=== PATIENT | male | born 1985 | race Caucasian/White ===

== ENCOUNTER 2017-11-21 13:08 | Day surgery (SDC) | payer OTHER ==
[~2017-11-21] VITALS: Ht 198.1 cm; Wt 115.0 kg
[~2017-11-21 13:08] MED LIST: HYDCHL25 PO; HYDR-86 PO; Norco 5-325 Ta1 EACH PO; Veetids 500500 MG PO; ZESTORETIC 20-121 EA
[2017-11-21] MEDS ORDERED: OXYC1TAB11 (15:01)
[2017-11-21] MEDS ORDERED: ALLO100 PO (15:02)
== END 2017-11-21 16:55 | disposition home or self-care (01) ==
LOC: ORSCSDS 13:08
PROVIDERS: Podiatrist Foot & Ankle Surgery
PROC: 0Y6S0Z3 Detachment at Left 2nd Toe, Low, Open Approach (ICD-10-PCS; principal; 2017-11-21 15:00)
DX: L97.529 Non-pressure chronic ulcer of other part of left foot with unspecified severity (principal); M86.9 Osteomyelitis, unspecified; I10 Essential (primary) hypertension; J45.909 Unspecified asthma, uncomplicated; Z79.899 Other long term (current) drug therapy
CPT/HCPCS: J0690; J2250; J3010; J7120

== ENCOUNTER 2018-07-31 10:30 | Emergency (ER) | payer OTHER ==
[~2018-07-31] VITALS: Ht 198.1 cm; Wt 117.9 kg
[~2018-07-31 10:30] MED LIST changes: +ALLO100 PO; +OXYC1TAB11
[2018-07-31] MEDS ORDERED: Cyclobenzaprine5 MG PO (12:24)
[2018-07-31] MEDS ORDERED: KETO10 PO (12:24)
== END 2018-07-31 12:36 | disposition home or self-care (01) ==
LOC: ER 10:30
DX: M54.41 Lumbago with sciatica, right side (principal); Z88.0 Allergy status to penicillin; Z88.1 Allergy status to other antibiotic agents; Z88.8 Allergy status to other drugs, medicaments and biological substances; Z79.899 Other long term (current) drug therapy; Z79.891 Long term (current) use of opiate analgesic; I10 Essential (primary) hypertension
CPT/HCPCS: 96372; 99283-25; J1885

== ENCOUNTER 2019-11-05 14:24 | Day surgery (SDC) | payer OTHER ==
[~2019-11-05] VITALS: Ht 198.1 cm; Wt 113.4 kg
[~2019-11-05 14:24] MED LIST changes: +Cyclobenzaprine5 MG PO; +DICL25ER PO; +KETO10 PO; +LISINOPRIL-HCT1 EACH PO; +PREG75 PO
--- NOTE | 2019-11-05 15:49 | NUR ---
11/05/19 1549 Felicia Chisholm RIGHT FOOT ULCER DRESSED WELL PER
== END 2019-11-05 16:52 | disposition home or self-care (01) ==
LOC: ORSCSDS 14:24
PROVIDERS: Podiatrist Foot & Ankle Surgery
PROC: 0Y6U0Z3 Detachment at Left 3rd Toe, Low, Open Approach (ICD-10-PCS; principal; 2019-11-05 15:45)
DX: M86.172 Other acute osteomyelitis, left ankle and foot (principal); L97.529 Non-pressure chronic ulcer of other part of left foot with unspecified severity; G60.9 Hereditary and idiopathic neuropathy, unspecified; G62.9 Polyneuropathy, unspecified; Z79.899 Other long term (current) drug therapy
CPT/HCPCS: J0171; J0690; J2250; J2704; J3010; J7120

== ENCOUNTER 2019-11-13 13:14 | Emergency (ER) | payer OTHER ==
[~2019-11-13] VITALS: Ht 198.1 cm; Wt 113.4 kg
[2019-11-13] MEDS ORDERED: LISI20 PO (13:37)
[2019-11-13 15:03] LABS: BASOPHILS ABSOLUTE AUTO 0.06 K/mm3 (0.00-0.23); BASOPHILS PERCENT AUTO 1 % (0-2); EOSINOPHILS PERCENT AUTO 1 % (0-6); Hematocrit 47.1 % (37.0-53.0); Hemoglobin 15.7 g/dL (13.5-17.5); IMMATURE GRAN ABSOLUTE AUTO 0.03 K/mm3 (0.00-0.10); IMMATURE GRAN PERCENT AUTO 0 % (0-1); LYMPHOCYTES ABSOLUTE AUTO 1.52 K/mm3 (0.84-5.20); LYMPHOCYTES PERCENT AUTO 13 % (21-46); MONOCYTES ABSOLUTE AUTO 1.03 K/mm3 (0.16-1.47); MONOCYTES PERCENT AUTO 9 % (4-13); Mean Corpuscular HGB 27.8 pg (26.0-34.0); Mean Corpuscular HGB Conc 33.3 g/dL (31.5-36.5); Mean Corpuscular Volume 84 fL (80-100); Mean Platelet Volume 8.8 fL (9.1-12.4); NEUTROPHILS ABSOLUTE AUTO 8.84 K/mm3 (1.96-9.15); NEUTROPHILS PERCENT AUTO 76 % (41-73); Platelet Count 379 K/mm3 (150-400); RDW Coefficient Variation 11.9 % (11.7-14.2); RDW Standard Deviation 36.1 fL (35.1-46.3); Red Blood Cell Count 5.64 M/mm3 (4.30-5.90); White Blood Cell Count 11.58 K/mm3 (4.00-11.30)
[2019-11-13 15:42] LABS: Anion Gap 5 mmol/L (6-16); Blood Urea Nitrogen 19 mg/dL (8-24); Bun/Creatinine Ratio 19.3 (12.0-20.0); CO2, Blood 27 mmol/L (21-32); Calcium, Blood 9.3 mg/dL (8.5-10.1); Chloride, Blood 105 mmol/L (98-108); Creatinine, Blood 0.98 mg/dL (0.60-1.20); Glomerular Filtration Rate >60 (60-); Glucose, Blood 92 mg/dL (70-99); Potassium, Blood 4.4 mmol/L (3.5-5.5); Sodium, Blood 137 mmol/L (136-145)
[2019-11-13] MEDS ORDERED: HYDR1TAB94 PO (16:19)
[2019-11-14] MEDS ORDERED: Cleocin HCl300 MG PO (00:47)
== END 2019-11-13 16:40 | disposition home or self-care (01) ==
LOC: ER 13:14
PROVIDERS: Emergency Medicine
DX: I89.1 Lymphangitis (principal); I10 Essential (primary) hypertension; Z88.0 Allergy status to penicillin; Z88.1 Allergy status to other antibiotic agents; Z79.899 Other long term (current) drug therapy
CPT/HCPCS: 36415; 76882; 80048; 83605; 85025; 96365; 99284-25

== ENCOUNTER → 2021-03-30 | Outpatient (CLI) | payer OTHER ==
[~2021-03-30] MED LIST changes: +CIPR500 PO; +Cleocin HCl300 MG PO; +DOXY100 PO; +Doxycycline Mo100 M1; +HYDR1TAB94 PO; +LISI20 PO; +OLME5TAB
[2021-03-30 11:08] LABS: BODY FLUID RBC 0.009 M/mm3 (0-0); RBC Count, Synovial Fluid 9000 /mm3 (0-0)
[2021-03-30 11:19] LABS: Appearance, Synovial Fluid Cloudy (Clear); Color, Synovial Fluid Pale Yellow (None-P Yel)
[2021-03-30 11:20] LABS: WBC Count, Synovial Fluid 41120 /mm3 (0-180)
[2021-03-30 11:33] LABS: Lymphs, Synovial Fluid 1 % (0-15); Monocytes/Macrophages, Synovia 6 % (0-65); Neutrophils, Synovial Fluid 93 % (0-24)
== END ==
LOC: LAB 09:20 → LAB SHORT 09:20
PROVIDERS: Physician Assistant Surgical
DX: M25.422 Effusion, left elbow (principal); M00.9 Pyogenic arthritis, unspecified
CPT/HCPCS: 89051

== ENCOUNTER 2021-05-18 11:15 | Day surgery (SDC) | payer OTHER ==
[~2021-05-18] VITALS: Ht 198.1 cm; Wt 104.1 kg
== END 2021-05-18 14:05 | disposition home or self-care (01) ==
LOC: ORSCSDS 11:15
PROVIDERS: Podiatrist Foot & Ankle Surgery
PROC: 0L8P0ZZ Division of Left Lower Leg Tendon, Open Approach (ICD-10-PCS; principal; 2021-05-18 12:30)
DX: L97.529 Non-pressure chronic ulcer of other part of left foot with unspecified severity (principal); G60.9 Hereditary and idiopathic neuropathy, unspecified; I10 Essential (primary) hypertension; Z79.899 Other long term (current) drug therapy; Z86.16 Personal history of COVID-19
CPT/HCPCS: J0171; J1100; J1885; J2250; J2405; J2704; J3010; J7120

== ENCOUNTER 2021-08-24 12:00 | Emergency (ER) | payer OTHER ==
[~2021-08-24] VITALS: Ht 198.1 cm; Wt 104.3 kg
[2021-08-24 13:08] LABS: BASOPHILS ABSOLUTE AUTO 0.04 K/mm3 (0.00-0.23); BASOPHILS PERCENT AUTO 0 % (0-2); EOSINOPHILS PERCENT AUTO 0 % (0-6); Hematocrit 47.5 % (37.0-53.0); Hemoglobin 16.6 g/dL (13.5-17.5); IMMATURE GRAN ABSOLUTE AUTO 0.04 K/mm3 (0.00-0.10); IMMATURE GRAN PERCENT AUTO 0 % (0-1); LYMPHOCYTES ABSOLUTE AUTO 1.26 K/mm3 (0.84-5.20); LYMPHOCYTES PERCENT AUTO 9 % (21-46); MONOCYTES PERCENT AUTO 3 % (4-13); Mean Corpuscular HGB 28.7 pg (26.0-34.0); Mean Corpuscular HGB Conc 34.9 g/dL (31.5-36.5); Mean Corpuscular Volume 82 fL (80-100); Mean Platelet Volume 9.5 fL (9.1-12.4); NEUTROPHILS PERCENT AUTO 87 % (41-73); Platelet Count 450 K/mm3 (150-400); RDW Coefficient Variation 12.5 % (11.7-14.2); RDW Standard Deviation 37.3 fL (35.1-46.3); Red Blood Cell Count 5.79 M/mm3 (4.30-5.90); White Blood Cell Count 13.74 K/mm3 (4.00-11.30)
[2021-08-24 13:27] LABS: Albumin, Blood 4.6 g/dL (3.4-5.0); Albumin/Globulin Ratio 1.2 (0.8-1.8); Bilirubin, Total 1.1 mg/dL (0.1-1.0); Bun/Creatinine Ratio 13.9 (12.0-20.0); Calcium, Blood 10.3 mg/dL (8.5-10.1); Creatinine, Blood 0.93 mg/dL (0.60-1.20); Globulin, Blood 3.9 g/dL (2.2-4.0); Potassium, Blood 3.9 mmol/L (3.5-5.5); Total Protein, Blood 8.5 g/dL (6.4-8.2)
[2021-08-24] MEDS ORDERED: HYDR1TAB94 PO (15:29)
[2021-08-24] MEDS ORDERED: Reglan10 MG PO (15:29)
[2021-08-24] MEDS ORDERED: LEVFLO500 PO (15:29)
== END 2021-08-24 15:40 | disposition home or self-care (01) ==
LOC: ER 12:00
PROVIDERS: Physician Assistant
DX: K52.9 Noninfective gastroenteritis and colitis, unspecified (principal); I10 Essential (primary) hypertension; F17.220 Nicotine dependence, chewing tobacco, uncomplicated; Z79.899 Other long term (current) drug therapy; Z88.1 Allergy status to other antibiotic agents; Z88.0 Allergy status to penicillin; Z88.8 Allergy status to other drugs, medicaments and biological substances
CPT/HCPCS: 36415; 74177; 80053; 83690; 85025; A9270; J1170; J1885; J2405; J2550; J2765; J7030; Q9967

== ENCOUNTER 2021-08-26 04:35 | Inpatient (IN) | payer OTHER ==
[~2021-08-26] VITALS: Ht 198.1 cm; Wt 105.9 kg
[~2021-08-26 04:35] MED LIST changes: +LEVFLO500 PO; +Reglan10 MG PO
[2021-08-26] MEDS ORDERED: OLMESARTAN MEDO20 MG PO (05:03)
[2021-08-26 05:12] LABS: BASOPHILS ABSOLUTE AUTO 0.04 K/mm3 (0.00-0.23); BASOPHILS PERCENT AUTO 1 % (0-2); EOSINOPHILS ABSOLUTE AUTO 0.03 K/mm3 (0.00-0.68); EOSINOPHILS PERCENT AUTO 0 % (0-6); Hematocrit 44.9 % (37.0-53.0); Hemoglobin 15.6 g/dL (13.5-17.5); IMMATURE GRAN ABSOLUTE AUTO 0.03 K/mm3 (0.00-0.10); IMMATURE GRAN PERCENT AUTO 0 % (0-1); LYMPHOCYTES ABSOLUTE AUTO 1.98 K/mm3 (0.84-5.20); LYMPHOCYTES PERCENT AUTO 23 % (21-46); MONOCYTES ABSOLUTE AUTO 0.66 K/mm3 (0.16-1.47); MONOCYTES PERCENT AUTO 8 % (4-13); Mean Corpuscular HGB 28.5 pg (26.0-34.0); Mean Corpuscular HGB Conc 34.7 g/dL (31.5-36.5); Mean Corpuscular Volume 82 fL (80-100); Mean Platelet Volume 9.2 fL (9.1-12.4); NEUTROPHILS ABSOLUTE AUTO 5.91 K/mm3 (1.96-9.15); NEUTROPHILS PERCENT AUTO 68 % (41-73); Platelet Count 342 K/mm3 (150-400); RDW Coefficient Variation 12.9 % (11.7-14.2); RDW Standard Deviation 38.6 fL (35.1-46.3); Red Blood Cell Count 5.47 M/mm3 (4.30-5.90); White Blood Cell Count 8.65 K/mm3 (4.00-11.30)
[2021-08-26 05:31] LABS: Albumin, Blood 4.1 g/dL (3.4-5.0); Albumin/Globulin Ratio 1.2 (0.8-1.8); Bilirubin, Direct 0.1 mg/dL (0.0-0.3); Bilirubin, Total 0.8 mg/dL (0.1-1.0); Bun/Creatinine Ratio 12.3 (12.0-20.0); Calcium, Blood 9.4 mg/dL (8.5-10.1); Creatinine, Blood 0.98 mg/dL (0.60-1.20); Globulin, Blood 3.5 g/dL (2.2-4.0); Potassium, Blood 4.1 mmol/L (3.5-5.5); Total Protein, Blood 7.6 g/dL (6.4-8.2)
--- NOTE | 2021-08-26 16:32 | NUR ---
SHIFT SUMMARY- TRANSFERRED FROM ED, ASSUMED CARE. PT PAIN MANAGED PER EMAR. PT RELAXING WITH FAMILY AT BEDSIDE. NO N/V NOTED DURING SHIFT. VSS. PT CONSUMING CLEAR DIET WITH EASE AT THIS POINT. WILL CONTINUE TO MONITOR, RESTING WITH CALL LIGHT IN REACH.
--- NOTE | 2021-08-27 05:16 | NUR ---
SHIFT SUMMARY PT ALERT AND ORIENTED X4. FAMILY IN ROOM. HR 50-70'S. BP STABLE. ON RA SATS OVER 95%. LR INFUSING AT 200ML/HR. PAIN MANAGED WITH DILUADID CHUCKING MACHINE SET UP OPERATOR PUMP. INDEPENDENT IN ROOM. CL DIET. SOME NAUSEA, MEDICATED PER EMAR. PT IN BED RESTING WITH SPOUSE AT SIDE. WILL CONTINUE TO MONITOR UNTIL REPORT GIVEN TO DAYSHIFT ANDREW
[2021-08-27 05:40] LABS: BASOPHILS ABSOLUTE AUTO 0.06 K/mm3 (0.00-0.23); BASOPHILS PERCENT AUTO 1 % (0-2); EOSINOPHILS ABSOLUTE AUTO 0.12 K/mm3 (0.00-0.68); EOSINOPHILS PERCENT AUTO 2 % (0-6); Hematocrit 42.8 % (37.0-53.0); Hemoglobin 14.3 g/dL (13.5-17.5); IMMATURE GRAN ABSOLUTE AUTO 0.03 K/mm3 (0.00-0.10); IMMATURE GRAN PERCENT AUTO 0 % (0-1); LYMPHOCYTES ABSOLUTE AUTO 2.87 K/mm3 (0.84-5.20); LYMPHOCYTES PERCENT AUTO 38 % (21-46); MONOCYTES ABSOLUTE AUTO 0.66 K/mm3 (0.16-1.47); MONOCYTES PERCENT AUTO 9 % (4-13); Mean Corpuscular HGB 28.5 pg (26.0-34.0); Mean Corpuscular HGB Conc 33.4 g/dL (31.5-36.5); Mean Corpuscular Volume 85 fL (80-100); Mean Platelet Volume 9.2 fL (9.1-12.4); NEUTROPHILS ABSOLUTE AUTO 3.74 K/mm3 (1.96-9.15); NEUTROPHILS PERCENT AUTO 50 % (41-73); Platelet Count 261 K/mm3 (150-400); RDW Coefficient Variation 12.9 % (11.7-14.2); RDW Standard Deviation 39.8 fL (35.1-46.3); Red Blood Cell Count 5.01 M/mm3 (4.30-5.90); White Blood Cell Count 7.48 K/mm3 (4.00-11.30)
[2021-08-27 06:00] LABS: Albumin, Blood 3.3 g/dL (3.4-5.0); Albumin/Globulin Ratio 1.2 (0.8-1.8); Bilirubin, Total 0.6 mg/dL (0.1-1.0); Bun/Creatinine Ratio 10.7 (12.0-20.0); Calcium, Blood 8.6 mg/dL (8.5-10.1); Creatinine, Blood 0.93 mg/dL (0.60-1.20); Globulin, Blood 2.7 g/dL (2.2-4.0); Magnesium, Blood 1.9 mg/dL (1.6-2.4); Phosphorus, Blood 3.6 mg/dL (2.5-4.9); Potassium, Blood 3.9 mmol/L (3.5-5.5)
--- NOTE | 2021-08-27 18:29 | NUR ---
PATIENT REPORTS WISHING TO DISCHARGE TOMORROW. DR. ZAMAN WROTE ORDERS FOR PO PAIN MEDICATION SO THAT THE PATIENT WOULD BE ABLE TO TRY THIS RATHER THAN IV. PATIENT UTILIZED ONLY ONE TIME DURING THIS SHIFT, AND USED THE STEAM PRESS OPERATOR BUTTON INSTEAD. HE SAID THAT HE MAY TRY IT TOMORROW. PATIENT HAD AN EPISODE OF NAUSEA AFTER LUNCH (WHICH WAS ALSO AROUND THE TIME OF THE PO PAIN MEDICATION). A DOSE OF ZOFRAN ALLEVIATED THIS. DIET INCREASED TO FUL LIQUID FOR DINNER. HE IS TOLERATING WELL, AND EATING VERY SLOWLY. PAIN HAS BEEN WLL MANAGED DURING THIS SHIFT. THE OPEN SORE ON THE BOTTOM OF THE TOE WAS CLEANED AND BANDAGE WAS REPLACED.
--- NOTE | 2021-08-28 05:48 | NUR ---
SUMMARY: PT A/OX4, IS INDEPENDENT IN ROOM AND CALLS APPROPRIATELY TO SPECIFY NEEDS. HE FEELS PAIN SYMPTOMS ARE IMPROVING AND IS HOPEFUL TO GO HOME TODAY. PT TRIALED PO PAIN MEDS W/DECREASED RELIANCE ON DILAUDID RN LPN LVN TO MANAGE UPPER ABDO PAIN. HE'S DENIED NAUSEA BUT X2 DOSES PRN ZOFRAN WAS RECIEVED PROPHYLACTICALLY W/APPLESAUCE TO BETTER TOLERATE PO OXYCODONE. LR CONT'S INFUSING AND PT MANAGED FULL LIQUID DIET AD ROBYN W/O COMPLAINTS. DX REMAINS C/D/I TO SORES ON BOTTOM OF PT'S L.GREAT TOE. VSS/AFEBRILE, NO ACUTE CHANGES. PROBABLE D/C TODAY. WCTM AND REPORT TO DAY RN.
--- NOTE | 2021-08-28 18:09 | NUR ---
DISCHARGE SUMMARY PATIENT IS ALERT AND ORIENTED X4. PATIENT WAS ADMITTED FOR PANCREATITIS. PATIENT HAS NOT COMPLAINED OF PAIN, NAUSEA, VOMITTING OR SOB THIS SHIFT. VITAL SIGNS REVIEWED. PATIENT HAS NOT HAD ANY ACUTE EVENTS THIS SHIFT. PATIENTS HARDWOOD FALLER WAS CLEARED AND DISCONNECTED WITH BRANDON RN. PATIENT WAS WALKED OFF UNIT WITH GIRLFRIEND.
== END 2021-08-28 17:57 | disposition home or self-care (01) | DRG 440 ==
LOC: ER 04:35 → MEDS 06:59
PROVIDERS: Student in an Organized Health Care Education/Training Program; ADMIT Family Medicine
DX: K85.90 Acute pancreatitis without necrosis or infection, unspecified (principal); I10 Essential (primary) hypertension; M10.9 Gout, unspecified; G62.9 Polyneuropathy, unspecified; F17.220 Nicotine dependence, chewing tobacco, uncomplicated; Z79.891 Long term (current) use of opiate analgesic; Z79.2 Long term (current) use of antibiotics; Z88.8 Allergy status to other drugs, medicaments and biological substances; Z79.899 Other long term (current) drug therapy; Z88.1 Allergy status to other antibiotic agents; Z87.39 Personal history of other diseases of the musculoskeletal system and connective tissue; Z89.422 Acquired absence of other left toe(s); Z98.890 Other specified postprocedural states
CPT/HCPCS: 36415; 80053; 82248; 83690; 83735; 84100; 85025; 99284-25; A9270; J1650; J1885; J2270; J2405; J2550; J2765; J7030; J7120

== ENCOUNTER 2024-09-01 22:46 | Emergency (ER) | payer SELFPAY ==
[~2024-09-01] VITALS: Ht 198.1 cm; Wt 104.3 kg
[~2024-09-01 22:46] MED LIST changes: +OLMESARTAN MEDO20 MG PO
[2024-09-02 04:00] VITALS: BP 129/84
[2024-09-02] MEDS ORDERED: TRAM50 PO (04:18)
[2024-09-02] MEDS ORDERED: IBUP100S PO (04:19)
[2024-09-02] MEDS ORDERED: ACETAMINOP160 MG/51 PO (04:19)
[2024-09-02] MEDS ORDERED: Ibuprofen 100 MG/5 ML 5ML UDC PO ONE (04:20)
[2024-09-02] MEDS ORDERED: Acetaminophen Suspension 160 MG/5 ML 5MLUDC PO ONE (04:20)
[2024-09-02] MEDS ORDERED: CEPH500 PO (04:35)
== END 2024-09-02 05:10 | disposition home or self-care (01) ==
LOC: ER 22:46
DX: S81.811A Laceration without foreign body, right lower leg, initial encounter (principal); L03.115 Cellulitis of right lower limb; S53.401A Unspecified sprain of right elbow, initial encounter; I10 Essential (primary) hypertension; F17.220 Nicotine dependence, chewing tobacco, uncomplicated; X58.XXXA Exposure to other specified factors, initial encounter; Z68.26 Body mass index [BMI] 26.0-26.9, adult; Z79.899 Other long term (current) drug therapy; Z88.0 Allergy status to penicillin; Z88.1 Allergy status to other antibiotic agents; Z88.8 Allergy status to other drugs, medicaments and biological substances
CPT/HCPCS: 73590; 73610; 99283-25